=== PATIENT | male | born 1960 | race Caucasian/White ===

== ENCOUNTER 2019-03-24 09:38 | Day surgery (SDC) | payer OTHER, BC ==
[2019-03-24] MEDS ORDERED: FENTAnyl 50 MCG/ML VIAL (13:02)
[2019-03-24] MEDS ORDERED: MIDAZOLAM 1 MG/ML 2 ML INJ ×2 (13:02)
== END 2019-03-24 14:05 | disposition home or self-care (01) ==
LOC: GIL 09:38
DX: Z12.11 Encounter for screening for malignant neoplasm of colon (principal); K64.8 Other hemorrhoids; D12.5 Benign neoplasm of sigmoid colon; K29.70 Gastritis, unspecified, without bleeding
CPT/HCPCS: 43239; 88305; 88312